=== PATIENT | female | born 1950 | race Caucasian/White ===

== ENCOUNTER 2019-11-29 12:59 | Day surgery (SDC) | payer MEDICARE ==
[2012-12-22 22:10] VITALS: BP 144/76
[2019-11-29] MEDS ORDERED: Sodium Chloride 0.9(Preservative Free) 10 ML IJ ONE (13:00)
[2019-11-29] MEDS ORDERED: Xylocaine 1% Vial 30 ML PF IJ ONE (13:00)
[2019-11-29] MEDS ORDERED: Decadron 4 MG INJ IV ONE (13:00)
--- NOTE | 2019-11-29 21:47 | XRAY ---
Indication: Lumbar MIKE. Intraoperative fluoroscopy was provided for 17 seconds. 2 digital spot images submitted for interpretation demonstrates posterior midline needle tip projecting just posterior to the lumbosacral junction disc level. Correlate with intraoperative findings/report.
--- NOTE | 2019-11-29 21:56 | XRAY ---
17 seconds of fluoroscopy was used in surgery for a lumbar MIKE.
== END 2019-11-29 15:32 | disposition home or self-care (01) ==
LOC: SDC-PAIN 12:59
PROVIDERS: ATTEND Psychiatry & Neurology Pain Medicine
DX: M54.16 Radiculopathy, lumbar region (principal); I10 Essential (primary) hypertension; J44.9 Chronic obstructive pulmonary disease, unspecified; G47.30 Sleep apnea, unspecified; E03.9 Hypothyroidism, unspecified; K21.9 Gastro-esophageal reflux disease without esophagitis; I25.10 Atherosclerotic heart disease of native coronary artery without angina pectoris; Z79.899 Other long term (current) drug therapy
CPT/HCPCS: 62323; 72100; 77003; J1100; J2001; Q9966

== ENCOUNTER 2020-03-06 10:41 | Day surgery (SDC) | payer MEDICARE ==
[2012-12-22 22:10] VITALS: BP 144/76
[2020-03-06] MEDS ORDERED: Sodium Chloride 0.9(Preservative Free) 10 ML IJ ONE (10:42)
[2020-03-06] MEDS ORDERED: Depo-Medrol 40 MG/ML IM ONE (10:42)
[2020-03-06] MEDS ORDERED: Xylocaine 1% Vial 30 ML PF IJ ONE (10:42)
[2020-03-06] MEDS ORDERED: Ketamine HCl 50 MG/ML ONE (12:57)
[2020-03-06] MEDS ORDERED: DIPRIVAN 200 MG/20 ML IV ONE (12:57)
--- NOTE | 2020-03-06 13:45 | XRAY ---
Indication: Lumbar MIKE. Intraoperative fluoroscopy was provided for 15 seconds. 2 digital spot images submitted for interpretation demonstrates posterior midline needle tip projecting just posterior to the L4-L5 interspace. Small amount of contrast injected for needle tip placement. Correlate with intraoperative findings/report.
--- NOTE | 2020-03-06 13:49 | XRAY ---
15 seconds fluoroscopy time in surgery for lumbar MIKE.
[2020-03-06] MEDS ORDERED: Lactated Ringers 1,000 ML IV ONE (15:30)
== END 2020-03-06 13:21 | disposition home or self-care (01) ==
LOC: SDC-PAIN 10:41
PROVIDERS: ATTEND Psychiatry & Neurology Pain Medicine
DX: M54.16 Radiculopathy, lumbar region (principal); I10 Essential (primary) hypertension; J44.9 Chronic obstructive pulmonary disease, unspecified; I25.10 Atherosclerotic heart disease of native coronary artery without angina pectoris; E03.9 Hypothyroidism, unspecified; G47.30 Sleep apnea, unspecified; K21.9 Gastro-esophageal reflux disease without esophagitis; Z86.73 Personal history of transient ischemic attack (TIA), and cerebral infarction without residual deficits; Z79.899 Other long term (current) drug therapy
CPT/HCPCS: 62323; 72100; 77003; J1030; J2001; J2704

== ENCOUNTER 2020-05-08 11:23 | Day surgery (SDC) | payer MEDICARE ==
[2012-12-22 22:10] VITALS: BP 144/76
[2020-05-08] MEDS ORDERED: BUPIVACAINE 0.5% VIAL IJ ONE (11:24)
[2020-05-08] MEDS ORDERED: Depo-Medrol 40 MG/ML IM ONE (11:24)
[2020-05-08] MEDS ORDERED: DIPRIVAN 200 MG/20 ML IV ONE (13:28)
[2020-05-08] MEDS ORDERED: Ketamine HCl 50 MG/ML ONE (13:29)
[2020-05-08] MEDS ORDERED: Lactated Ringers 1,000 ML IV ONE (14:06)
--- NOTE | 2020-05-08 15:00 | XRAY ---
Indication: Bilateral SI joint injection. Intraoperative fluoroscopy provided for 20 seconds. 4 digital spot images submitted for interpretation demonstrates posterior needle tip projecting over the inferior left and right SI joint. Correlate with intraoperative findings/report.
--- NOTE | 2020-05-08 15:03 | XRAY ---
20 seconds fluoroscopy time in surgery for bilateral SI joint injections.
== END 2020-05-08 13:42 | disposition home or self-care (01) ==
LOC: SDC-PAIN 11:23
PROVIDERS: ATTEND Psychiatry & Neurology Pain Medicine
DX: M46.1 Sacroiliitis, not elsewhere classified (principal); I10 Essential (primary) hypertension; J44.9 Chronic obstructive pulmonary disease, unspecified; G47.30 Sleep apnea, unspecified; K21.9 Gastro-esophageal reflux disease without esophagitis; E03.9 Hypothyroidism, unspecified; Z79.899 Other long term (current) drug therapy
CPT/HCPCS: 27096; 72202; 77002; G0260; 99100; J1030; J2704

== ENCOUNTER 2020-07-03 11:10 | Day surgery (SDC) | payer MEDICARE ==
[2012-12-22 22:10] VITALS: BP 144/76
[2020-07-03] MEDS ORDERED: Xylocaine 1% Vial 30 ML PF IJ ONE (11:11)
[2020-07-03] MEDS ORDERED: BUPIVACAINE 0.5% VIAL IJ ONE (11:11)
[2020-07-03] MEDS ORDERED: Depo-Medrol 40 MG/ML IM ONE (11:11)
[2020-07-03] MEDS ORDERED: Versed 2 MG/2 ML Injection ONE (12:35)
[2020-07-03] MEDS ORDERED: SUBLIMAZE 100 MCG/2 ML ONE (12:35)
[2020-07-03] MEDS ORDERED: Lactated Ringers 1,000 ML IV ONE (13:52)
--- NOTE | 2020-07-03 13:58 | XRAY ---
Indication: Right shoulder injection. Intraoperative fluoroscopy provided for 21 seconds. 3 digital spot image submitted for interpretation demonstrate needle tip projecting over the right glenohumeral joint superiorly. Second needle tip projects subacromial. Small amount of contrast injected for both needle tip placement. Correlate with intraoperative findings/report.
--- NOTE | 2020-07-03 14:00 | XRAY ---
8 seconds fluoroscopy time in surgery for injection of the greater trochanteric bursa of the left hip.
--- NOTE | 2020-07-03 14:00 | XRAY ---
21 seconds fluoroscopy time in surgery for intra-articular and subachromial injections of the right shoulder.
--- NOTE | 2020-07-03 14:00 | XRAY ---
10 seconds fluoroscopy time in surgery for injection of the greater trochanteric bursa of the right hip.
--- NOTE | 2020-07-03 14:01 | XRAY ---
Indication: Right hip injection. Intraoperative fluoroscopy provided for 8 seconds. Single digital spot image submitted for interpretation demonstrate needle tip projecting just lateral to the right greater trochanter. Small amount of contrast injected for needle tip placement. Correlate with intraoperative findings/report.
--- NOTE | 2020-07-03 14:10 | XRAY ---
Indication: Left hip injection. Intraoperative fluoroscopy provided for 10 seconds. Single digital spot image submitted for interpretation demonstrate needle tip projecting just lateral to the left greater trochanter. Small amount of contrast injected for needle tip placement. Correlate with intraoperative findings/report.
== END 2020-07-03 13:12 | disposition home or self-care (01) ==
LOC: SDC-PAIN 11:10
PROVIDERS: ATTEND Psychiatry & Neurology Pain Medicine
DX: M19.011 Primary osteoarthritis, right shoulder (principal); M70.62 Trochanteric bursitis, left hip; M70.61 Trochanteric bursitis, right hip; I10 Essential (primary) hypertension; J44.9 Chronic obstructive pulmonary disease, unspecified; G47.30 Sleep apnea, unspecified; E03.9 Hypothyroidism, unspecified; I25.10 Atherosclerotic heart disease of native coronary artery without angina pectoris; Z79.899 Other long term (current) drug therapy
CPT/HCPCS: 20610; 73030; 73501; 77002; J1030; J2001; J2250; J3010; Q9966

== ENCOUNTER 2020-08-21 14:06 | Day surgery (SDC) | payer MEDICARE ==
[2012-12-22 22:10] VITALS: BP 144/76
[2020-08-21] MEDS ORDERED: LIDOCAINE HCL 2% 100 MG/5 ML IJ ONE (14:07)
[2020-08-21] MEDS ORDERED: Versed 2 MG/2 ML Injection ONE (16:12)
[2020-08-21] MEDS ORDERED: Lactated Ringers 1,000 ML IV ONE (16:22)
--- NOTE | 2020-08-21 17:36 | XRAY ---
Indication: Bilateral L4-S1 MBB. Intraoperative fluoroscopy provided for 13 seconds. Single digital spot image submitted for interpretation demonstrates posterior needle tips projecting over the expected left and right L4-S1 nerve roots. Correlate with intraoperative findings/report.
--- NOTE | 2020-08-21 17:51 | XRAY ---
13 seconds of fluoroscopy was used in surgery for a bilateral L4-L5 and L5-S1 MBB.
== END 2020-08-21 16:45 | disposition home or self-care (01) ==
LOC: SDC-PAIN 14:06
PROVIDERS: ATTEND Psychiatry & Neurology Pain Medicine
DX: M47.816 Spondylosis without myelopathy or radiculopathy, lumbar region (principal); I10 Essential (primary) hypertension; I25.10 Atherosclerotic heart disease of native coronary artery without angina pectoris; J44.9 Chronic obstructive pulmonary disease, unspecified; G47.30 Sleep apnea, unspecified; K21.9 Gastro-esophageal reflux disease without esophagitis; F32.9 Major depressive disorder, single episode, unspecified; E03.9 Hypothyroidism, unspecified; D64.9 Anemia, unspecified; Z79.899 Other long term (current) drug therapy
CPT/HCPCS: 64493; 64494; 72020; 77002; J2250

== ENCOUNTER 2020-10-16 13:39 | Day surgery (SDC) | payer MEDICARE ==
[2012-12-22 22:10] VITALS: BP 144/76
[2020-10-16] MEDS ORDERED: BUPIVACAINE 0.5% VIAL IJ ONE (13:40)
[2020-10-16] MEDS ORDERED: DIPRIVAN 200 MG/20 ML IV ONE (15:12)
[2020-10-16] MEDS ORDERED: Lactated Ringers 1,000 ML IV ONE (15:57)
--- NOTE | 2020-10-16 16:30 | XRAY ---
Indication: Bilateral L4-S1 MBB. Intraoperative fluoroscopy provided for 16 seconds. Single digital spot image submitted for interpretation demonstrates posterior needle tips projecting over the expected left and right L4-S1 nerve roots. Correlate with intraoperative findings/report.
--- NOTE | 2020-10-16 16:35 | XRAY ---
16 seconds fluoroscopy time in surgery for bilateral L4-S1 MBB.
== END 2020-10-16 15:37 | disposition home or self-care (01) ==
LOC: SDC-PAIN 13:39
PROVIDERS: ATTEND Psychiatry & Neurology Pain Medicine
DX: M47.816 Spondylosis without myelopathy or radiculopathy, lumbar region (principal); Z79.899 Other long term (current) drug therapy
CPT/HCPCS: 64493; 64494; 72020; 77002; J2704

== ENCOUNTER 2020-11-27 14:44 | Day surgery (SDC) | payer MEDICARE ==
[2012-12-22 22:10] VITALS: BP 144/76
[2020-11-27] MEDS ORDERED: Xylocaine 1% Vial 30 ML PF IJ ONE (14:45)
[2020-11-27] MEDS ORDERED: BUPIVACAINE 0.5% VIAL IJ ONE (14:45)
[2020-11-27] MEDS ORDERED: Depo-Medrol 40 MG/ML IM ONE (14:45)
[2020-11-27] MEDS ORDERED: Lactated Ringers 1,000 ML IV ONE (16:41)
[2020-11-27] MEDS ORDERED: DIPRIVAN 200 MG/20 ML IV ONE (17:19)
--- NOTE | 2020-11-27 20:29 | XRAY ---
Indication: Left L4-S1 RFA. Intraoperative fluoroscopy provided for 27 seconds. 3 digital spot image submitted for interpretation demonstrates posterior needle tips projecting over the expected left L4-S1 nerve roots. Correlate with intraoperative findings/report.
--- NOTE | 2020-11-27 21:34 | XRAY ---
27 seconds of fluoroscopy was used in surgery for right L4-S1 RFA.
== END 2020-11-27 18:08 | disposition home or self-care (01) ==
LOC: SDC-PAIN 14:44
PROVIDERS: ATTEND Psychiatry & Neurology Pain Medicine
DX: M47.816 Spondylosis without myelopathy or radiculopathy, lumbar region (principal); Z79.899 Other long term (current) drug therapy
CPT/HCPCS: 64635; 64636; 72100; 77002; 99100; J1030; J2001; J2704

== ENCOUNTER 2020-12-11 10:30 | Day surgery (SDC) | payer MEDICARE ==
[2012-12-22 22:10] VITALS: BP 144/76
[2020-12-11] MEDS ORDERED: BUPIVACAINE 0.5% VIAL IJ ONE (10:31)
[2020-12-11] MEDS ORDERED: Xylocaine 1% Vial 30 ML PF IJ ONE (10:31)
[2020-12-11] MEDS ORDERED: Depo-Medrol 40 MG/ML IM ONE (10:31)
[2020-12-11] MEDS ORDERED: Lactated Ringers 1,000 ML IV ONE (10:41)
[2020-12-11] MEDS ORDERED: DIPRIVAN 200 MG/20 ML IV ONE (11:44)
--- NOTE | 2020-12-11 13:55 | XRAY ---
Indication: Right L4-S1 RFA. Intraoperative fluoroscopy provided for 36 seconds. 3 digital spot images submitted for interpretation demonstrates posterior needle tips projecting over the expected right L4-S1 nerve roots. Correlate with intraoperative findings/report.
--- NOTE | 2020-12-11 14:08 | XRAY ---
36 seconds fluoroscopy time in surgery for left L4-S1 RFA.
== END 2020-12-11 12:22 | disposition home or self-care (01) ==
LOC: SDC-PAIN 10:30
PROVIDERS: ATTEND Psychiatry & Neurology Pain Medicine
DX: M47.816 Spondylosis without myelopathy or radiculopathy, lumbar region (principal); Z79.899 Other long term (current) drug therapy
CPT/HCPCS: 64635; 64636; 72100; 77002; 99100; J1030; J2001; J2704

== ENCOUNTER 2023-05-05 14:32 | Day surgery (SDC) | payer MEDICARE ==
[2012-12-22 22:10] VITALS: BP 144/76
[2023-05-05] MEDS ORDERED: Sodium Chloride 0.9(Preservative Free) 10 ML IJ ONE (14:33)
[2023-05-05] MEDS ORDERED: Depo-Medrol 40 MG/ML IM ONE (14:33)
[2023-05-05] MEDS ORDERED: XYLOCAINE-MPF 1% 5ML SDV IJ ONE (14:33)
[2023-05-05] MEDS ORDERED: Lactated Ringers 1,000 ML IV ONE (16:23)
--- NOTE | 2023-05-05 18:31 | XRAY ---
Indication: Lumbar MIKE. Intraoperative fluoroscopy provided for 29 seconds. 3 digital spot images submitted for interpretation demonstrates posterior needle tip projecting posterior to lumbosacral junction. Small amount of contrast injected for needle tip placement. Correlate with intraoperative findings/report.
--- NOTE | 2023-05-06 08:44 | XRAY ---
29 seconds of fluoroscopy was used in surgery for a lumbar MIKE.
== END 2023-05-05 17:20 | disposition home or self-care (01) ==
LOC: SDC-PAIN 14:32
PROVIDERS: ATTEND Psychiatry & Neurology Pain Medicine
DX: M54.16 Radiculopathy, lumbar region (principal)
CPT/HCPCS: 62321; 72100; 77003; J1030; Q9966

== ENCOUNTER 2024-05-10 13:43 | Day surgery (SDC) | payer MEDICARE ==
[2012-12-22 22:10] VITALS: BP 144/76
[2024-05-10] MEDS ORDERED: BUPIVACAINE 0.5% VIAL IJ ONE (13:44)
[2024-05-10] MEDS ORDERED: Depo-Medrol 40 MG/ML IM ONE (13:44)
[2024-05-10] MEDS ORDERED: propofoL IV ONE (15:53)
--- NOTE | 2024-05-10 17:05 | XRAY ---
Indication: Bilateral hip and bilateral greater trochanter bursa injection. Intraoperative fluoroscopy provided for 55 seconds. 6 digital spot image submitted for interpretation demonstrates needle tips projecting lateral to left/right femur necks and left/right greater trochanters. Small amount of contrast injected for all needle tip placement. Correlate with intraoperative findings/report.
--- NOTE | 2024-05-10 17:09 | XRAY ---
55 seconds of fluoroscopy was used in surgery for a bilateral intra-articular hip and greater trochanteric bursa injection.
== END 2024-05-10 16:35 | disposition home or self-care (01) ==
LOC: SDC-PAIN 13:43
PROVIDERS: ATTEND Psychiatry & Neurology Pain Medicine
DX: M16.0 Bilateral primary osteoarthritis of hip (principal); M70.62 Trochanteric bursitis, left hip; M70.61 Trochanteric bursitis, right hip
CPT/HCPCS: 20610; 73522; 77002; J2704; Q9966